=== PATIENT | female | born 1985 | race Caucasian/White ===

== ENCOUNTER 2021-09-03 13:36 | Emergency (ER) | payer BC ==
[2021-09-03] MEDS ORDERED: Morphine 4 MG/ML VIAL ONE (15:37)
== END 2021-09-03 16:00 | disposition home or self-care (01) ==
LOC: CSHERS 13:36
DX: S82.841A Displaced bimalleolar fracture of right lower leg, initial encounter for closed fracture (principal); X50.9XXA Other and unspecified overexertion or strenuous movements or postures, initial encounter; I10 Essential (primary) hypertension; E78.5 Hyperlipidemia, unspecified
CPT/HCPCS: 96372; J2270